=== PATIENT | female | born 1965 | race American Indian/Alaskan Native ===

== ENCOUNTER 2024-06-07 11:53 | Emergency (ER) | payer MEDICAID ==
[~2024-06-07] VITALS: Ht 157.5 cm; Wt 47.0 kg
[2024-06-07 14:20] VITALS: BP 110/65; PULSE 75; TEMP 97.6; O2SAT 95
[2024-06-07] MEDS: oxyCODONE IR 5mg (immed. release) tablet PO STA (15:03)
[2024-06-07 15:45] VITALS: RESP 16
== END 2024-06-07 16:03 | disposition home or self-care (01) ==
LOC: ER 11:53
DX: R07.81 Pleurodynia (principal); M19.90 Unspecified osteoarthritis, unspecified site; G89.29 Other chronic pain; F31.9 Bipolar disorder, unspecified; F17.200 Nicotine dependence, unspecified, uncomplicated; Z91.030 Bee allergy status
CPT/HCPCS: 71110; 99284

== ENCOUNTER 2025-06-06 14:52 | Emergency (ER) | payer MEDICAID ==
[~2025-06-06] VITALS: Ht 157.5 cm; Wt 75.7 kg
[2025-06-06 15:04] VITALS: TEMP 97
--- NOTE | 2025-06-06 15:17 | Physician Documentation ---
History of Present Illness Chief Complaint: See Chief Complaint Stated Complaint: SEE CHIEF Primary Medical Doctor: NONE HPI Is a 59-year-old female that presents to the emergency department for evaluation of teeth chattering and stuttering times several days. Patient reports that she had an episode of this approximately a year or so ago that she was treated for put on medication. Patient reports that she is followed by a neurologist for multiple different issues. Patient reports that she has bipolar paranoid schizophrenia depression anxiety and PTSD at baseline. She is taking medications for each of those diagnoses in his current on all of them. Patient also reports diabetes that she currently takes metformin for and is controlled. Patient denies ever being diagnosed with any tremulous disorders no history of dyskinesias that she is aware of other than the episode of this approximately 1- 2 years ago. History as above. I did ask if she had any psychiatric medication changes this past month and she does endorse that a proximally one month ago her risperidone was increased in his symptoms of shaking began one-week ago. Medication Reconciliation Allergies: Coded Allergies: bee venom protein (honey bee) (Verified Allergy, Unknown, 06/06/25) Past Medical History Past Medical History: Arthritis, Chronic Pain, Osteoporosis, Bipolar Past Surgical History: no surgical history Drug Use: none Lives In: Home Review of Systems ROS All review of systems negative except as per HPI Physical Exam Vital Signs: Temperature: 97.0, Source: Temporal, Heart Rate: 82, Respiratory Rate: 16, BP: 117/60, Pulse Oximetry: 96, Weight: 75.700 Oxygen Flow Rate: 0 Physical Exam General: Patient is awake, alert, cooperative in no acute distress. Lipid tremors as well as shaking of bilateral hands Head: Normocephalic and atraumatic. Eyes: Conjunctival normal. EOMI. PERRL. ENT: Mucous membranes moist. Neck: Supple, trachea is midline. Chest: Clear to auscultation bilaterally without rales, rhonchi, or wheezes. There is no accessory muscle use or retractions. Cardiac: RRR without murmurs, gallops, or rubs. Neuro: Cranial nerves II-XII grossly intact. No focal neuro deficits. Progress Results/Orders Results/Orders Vital Signs 06/06/25 15:04 Temp 97.0 Pulse 82 Resp 16 B/P (MAP) 117/60 Pulse Ox 96 O2 Flow Rate 0 Medical Decision Making Findings Patient presents to the emergency room with some tremors in her hands along with her mouth. Differentials include but are not limited to anesthesia, tired hives dyskinesia, multiple sclerosis, demyelinating disease. Given patient's history of psychiatric medication increase his along with classic symptoms I do feel patient is suffering from tired I have dyskinesia necessitating discontinuation of her medication/lowest dose possible. This was discussed with the patient in the absolute need to follow up with a therapist/ Tomorrow for medication adjustments. It was discussed at length with the patient that she needs to have this addressed very soon as this could become permanent. Departure Disposition: HOME / SELF CARE / HOMELESS Impression: Primary Impression: Tardive dyskinesia Condition: Fair Discharge Instructions: Tardive Dyskinesia Additional Instructions: You need to decrease or stop your risperidone that has you suffering from something called tardive dyskinesia related to antipsychotic medications. Call your doctor tomorrow for medication adjustments and follow up as this condition may become permanent Referrals: NO PRIMARY CARE PROVIDER (PCP) Education Educated: Patient Educated regarding: diagnosis, treatment, need for follow up Signature Scribe Signature: No scribe Attestation: The note accurately reflects work and decisions made by me.Dima Salas MD 06/06/25 21:10 ASHUTOSH WYATT Jun 06, 2025 15:17 DIMA SALAS MD Jun 06, 2025 21:10
[2025-06-06 15:59] LABS: MEAN PLATELET VOLUME 9.1 FL (7.4-10.4); RED CELL DISTRIBUTION WIDTH 14.0 % (11.5-14.5)
[2025-06-06 16:19] LABS: CREATININE 0.90 MG/DL (0.40-0.90); TOTAL CARBON DIOXIDE 27.7 MMOL/L (24-32); eCRCL 53 ML/MIN; eGFR 64 ML/MIN
[2025-06-06 20:00] LABS: LEUKOCYTE ESTERASE ,URINE NEGATIVE (Neg); NITRITES, URINE NEGATIVE (Neg); OCCULT BLOOD,URINE NEGATIVE (Neg)
[2025-06-06 20:07] LABS: UA COLLECTION TYPE CLN CATCH MIDSTREAM
[2025-06-06 21:21] VITALS: BP 110/60; PULSE 90; RESP 16; O2SAT 97
== END 2025-06-06 21:22 | disposition home or self-care (01) ==
LOC: ER 14:53
DX: G24.01 Drug induced subacute dyskinesia (principal); F31.9 Bipolar disorder, unspecified; E11.9 Type 2 diabetes mellitus without complications; M19.90 Unspecified osteoarthritis, unspecified site; G89.29 Other chronic pain; Z91.030 Bee allergy status
CPT/HCPCS: 36415; 80053; 81003; 82607; 83735; 85025; 99283

== ENCOUNTER 2025-07-13 11:34 | Emergency (ER) | payer MEDICAID ==
[~2025-07-13] VITALS: Ht 157.5 cm; Wt 72.0 kg
[2025-07-13 11:51] VITALS: BP 97/45; PULSE 59; RESP 16; TEMP 97.3; O2SAT 98
[2025-07-13] MEDS ORDERED: [UNRECOGNIZED DRUG - CODE] PO (12:59)
--- NOTE | 2025-07-13 12:59 | Physician Documentation ---
HPI ~ General Chief Complaint: Medication Request Stated Complaint: MED REQUEST Time Seen by MD: 12:23 Primary Medical Doctor: NONE Source: patient Mode of Arrival: POV Exam Limitations: no limitations History of Present Illness HPI Comments 59-year-old female on a medication to help with schizophrenia which is a starter pack and she starts with a lower dose and ends up with a higher dose she is now in the higher dose but it is making her sick. Patient was unable to reach her psychiatrist to discuss medication change and would like a few days of the lower dose prior to talking to her provider no acute concerns Medication Reconciliation Allergies: Coded Allergies: bee venom protein (honey bee) (Verified Allergy, Unknown, 07/13/25) Scheduled Xanomeline Tart/Trospium Chlor (Cobenfy 50 mg-20 mg Capsule), 1 CAP PO BID Past Medical History Past Medical History: Arthritis, Chronic Pain, Osteoporosis, Bipolar Past Surgical History: no surgical history Drug Use: none Lives In: Home Review of Systems All Other Systems at this time: Reviewed and Negative Physical Exam Physical Exam Vital Signs: RN Vital Signs have been reviewed: Yes, Temperature: 97.3, Source: Temporal, Heart Rate: 59, Respiratory Rate: 16, BP: 97/45, Pulse Oximetry: 98, Weight: 72.000 Oxygen Flow Rate: 0 Physical Exam General: Alert, no apparent distress. HEENT: moist mucous membranes. Neck: Full range of motion. Respiratory: No respiratory distress speaking in full sentences Chest: No accessory muscle use. Cardiovascular: Appears well perfused Neurologic: Oriented x4. Psychiatric: Normal mood and affect. Skin: Normal color, warm and dry. No edema, no ecchymosis. Progress Results/Orders Results/Orders Vital Signs 07/13/25 11:51 Temp 97.3 Pulse 59 Resp 16 B/P (MAP) 97/45 Pulse Ox 98 O2 Flow Rate 0 Medical Decision Making Additional information obtaine: N/A Findings Medication refilled at the lower dose encouraged to see psychologist or prescriber to discuss with continued lower dose Differential Dx:Considerations: Include: Medication refill Departure Time of Disposition: 12:57 Disposition: 01 HOME / SELF CARE / HOMELESS Impression: Primary Impression: General medical exam Condition: Stable Discharge Instructions: Medicine Refill at the Emergency Department Additional Instructions: Follow up with Psychiatry to evaluate if this dose as the lower mg is okay to stay steady on. Follow up in the next 2-3 days Referrals: NO PRIMARY CARE PROVIDER (PCP) Prescriptions Xanomeline Tart/Trospium Chlor (Cobenfy 50 mg-20 mg Capsule) 50 Mg-20 Mg Capsule 1 CAP PO BID for 10 Days, #20 CAPSULE Prov: MORAIMA JOSHUA NP 07/13/25 Education Educated: Patient Educated regarding: diagnosis, treatment, need for follow up Signature Scribe Signature: No scribe Attestation: The note accurately reflects work and decisions made by me.Moraima Joshua - MYRNA 07/13/25 12:59 MORAIMA JOSHUA NP Jul 13, 2025 12:59
== END 2025-07-13 13:18 | disposition home or self-care (01) ==
LOC: ER 11:35
DX: Z00.00 Encounter for general adult medical examination without abnormal findings (principal); M19.90 Unspecified osteoarthritis, unspecified site; G89.29 Other chronic pain; F31.9 Bipolar disorder, unspecified; F20.9 Schizophrenia, unspecified; Z91.030 Bee allergy status; Z79.899 Other long term (current) drug therapy
CPT/HCPCS: 99282

== ENCOUNTER 2025-08-12 17:48 | Emergency (ER) | payer MEDICAID ==
[~2025-08-12] VITALS: Ht 157.5 cm; Wt 68.5 kg
[~2025-08-12 17:48] MED LIST: [UNRECOGNIZED DRUG - CODE] PO
[2025-08-12 17:59] VITALS: BP 140/93; PULSE 110; RESP 17; O2SAT 96
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
--- NOTE | 2025-08-12 18:11 | ELECTROCARDIOGRAPH REPORT ---
[facility] Test Date: 2025-08-12 Test Time: 18:07:37 Pat Name: CHRIS LEDEZMA Department: [facility] Patient ID: [id number] Room: Gender: F Resident Physician In Radiology: : 1965 Requested By: ALBERT CROUCH Order Number: [id number] Reading MD: Dr. Dany Milligan Measurements Intervals [place] Rate: 104 P: 31 [place]: 149 QRS: 47 QRSD: 83 T: 11 QT: 374 QTc: 492 Interpretive Statements Sinus tachycardia Low voltage, precordial leads Borderline T abnormalities, anterior leads Borderline prolonged QT interval Electronically Signed On 08-13-2025 6:59:[address] Dany Milligan Please click the below link to view image of tracing.
[2025-08-12 18:32] VITALS: TEMP 98.4
--- NOTE | 2025-08-12 18:32 | RADIOLOGY REPORT ---
CHEST RADIOGRAPH Indication: cp Technique: Single frontal view of the chest was obtained COMPARISON: None FINDINGS: Lines and Tubes: None Lungs: Clear Pleura: No effusion. No pneumothorax. Cardiomediastinal contours: Unremarkable Bones: Unremarkable IMPRESSION: 1. No acute disease.
== END 2025-08-12 18:36 | disposition home or self-care (01) ==
LOC: ER 17:49
DX: Z00.00 Encounter for general adult medical examination without abnormal findings (principal); M19.90 Unspecified osteoarthritis, unspecified site; G89.29 Other chronic pain; F31.9 Bipolar disorder, unspecified; Z91.030 Bee allergy status; Z79.899 Other long term (current) drug therapy; V49.40XA Driver injured in collision with unspecified motor vehicles in traffic accident, initial encounter; Y93.89 Activity, other specified; Y92.89 Other specified places as the place of occurrence of the external cause; Y99.8 Other external cause status
CPT/HCPCS: 71045; 93005; 99283